=== PATIENT | male | born 1965 | race Two or more races ===

== ENCOUNTER 2017-07-21 22:24 | Emergency (ER) | payer SELFPAY ==
[~2017-07-21] VITALS: Ht 182.9 cm; Wt 90.7 kg
[2017-07-21] MEDS ORDERED: NORVASC2.5 MG ORAL (22:33)
[2017-07-21 23:17] LABS: BASOPHILS % (AUTO) 0.5 % (0.0-2.0); EOSINOPHILS % (AUTO) 0.7 % (0.0-3.0); LYMPHOCYTES % (AUTO) 28.1 % (20.0-45.0); MEAN CORPUSCULAR HEMOGLOBIN 29.5 PG (27.0-31.0); MEAN CORPUSCULAR HGB CONC 31.9 G/DL (32.0-36.0); MEAN CORPUSCULAR VOLUME 92 FL (80-99); MEAN PLATELET VOLUME 7.2 FL (6.5-10.1); MONOCYTES % (AUTO) 6.2 % (1.0-10.0); NEUTROPHILS % (AUTO) 64.5 % (45.0-75.0); PLATELET COUNT 187 K/UL (150-450); RED BLOOD COUNT 6.05 M/UL (4.70-6.10); RED CELL DISTRIBUTION WIDTH 12.9 % (11.6-14.8); WHITE BLOOD COUNT 12.3 K/UL (4.8-10.8)
[2017-07-21 23:41] LABS: ALANINE AMINOTRANSFERASE 15 U/L (12-78); ALBUMIN/GLOBULIN RATIO 1.1 (1.0-2.7); ANION GAP 11 mmol/L (5-15); ASPARTATE AMINO TRANSFERASE 11 U/L (15-37); CALCIUM 9.8 MG/DL (8.5-10.1); CARBON DIOXIDE 25 MMOL/L (21-32); CHLORIDE 105 MMOL/L (98-107); CKMB < 0.5 NG/ML (0.0-3.6); CREATININE 1.1 MG/DL (0.55-1.30); GLOMERULAR FILTRATION RATE > 60 mL/min (>60); POTASSIUM 3.9 MMOL/L (3.5-5.1); SODIUM 141 MMOL/L (136-145); TOTAL PROTEIN 7.9 G/DL (6.4-8.2)
[2017-07-21] MEDS ORDERED: Morphine Sulfate 4mg/ml Inj IVP ONE (23:45)
[2017-07-21 23:53] LABS: PROTHROMBIN TIME 10.7 SEC (9.30-11.50)
[2017-07-22] MEDS ORDERED: Morphine Sulfate 2mg/ml Inj IVP ONE ×2 (00:15)
[2017-07-22] MEDS ORDERED: Methocarbamol 750mg tab ORAL ONE (00:30)
--- NOTE | 2017-07-22 01:51 | Emergency Room Report ---
History of Present Illness General Chief Complaint: Chest Pain Source: EMS Present Illness HPI 51-year-old presenting with back pain for 4 days and chest pain. Patient states pain started gradually. Pain is localized to bilateral upper, also with chest pain, sharp in nature, Movement worsens pain. There are no alleviating factors. Denies any shortness of breath diaphoresis nausea vomiting. Denies fever, chills, cough, abd pain. Denies trauma. Patient has never had a stress test. Patient has never had a cardiac catheterization. Denies smoking, no family history of cardiac disease at a young age. Denies trauma. Denies lower extremity weakness/numbness, no bowel/bladder retention or incontinence, saddle anesthesia. Denies fever, chills, abdominal pain, n/v, dysuria/hematuria. No history of IVDA Allergies: Coded Allergies: No Known Allergies (Unverified , 07/21/17) Patient History Past Medical History: see triage record Past Surgical History: none Pertinent Family History: none Reviewed Nursing Documentation: PMH: Agreed, PSxH: Agreed Review of Systems All Other Systems: negative except mentioned in HPI Physical Exam Vital Signs Date Time Temp Pulse Resp B/P (MAP) Pulse Ox O2 Delivery O2 Flow Rate FiO2 07/21/17 22:28 98.1 90 20 171/72 94 Room Air Sp02 EP Interpretation: reviewed, normal General Appearance: alert, GCS 15, non-toxic, mild distress Head: normocephalic, atraumatic Eyes: bilateral eye normal inspection, bilateral eye PERRL, bilateral eye EOMI ENT: normal ENT inspection, normal pharynx, normal voice, moist mucus membranes Neck: normal inspection, full range of motion, supple Respiratory: normal inspection, lungs clear, normal breath sounds, no respiratory distress, no retraction, no wheezing, speaking full sentences, chest symmetrical Cardiovascular #1: normal inspection, regular rate, rhythm, no edema, normal capillary refill Cardiovascular #2: 2+ radial (R), 2+ radial (L) Gastrointestinal: normal inspection, non tender, soft, non-distended, no guarding Genitourinary: no CVA tenderness Musculoskeletal: normal range of motion, other - b/l thoracic paraspinal tendenress,no middline tenderness Neurologic: normal inspection, alert, oriented x3, responsive, appeals coordinator III-XII nml as tested, motor strength/tone normal, sensory intact, normal gait, speech normal Psychiatric: normal inspection, judgement/insight normal, memory normal Skin: normal inspection, normal color, no rash, warm/dry, well hydrated, normal turgor Medical Decision Making Diagnostic Impression: Primary Impression: Chest pain Additional Impression: Back pain ER Course 51-year-old male with 2 days of back pain, chest pain DDX: ACS vs. CHF vs. pneumonia vs. gastritis/GERD vs. pneumothorax Aortic dissection Plan: IV access, obtain labs including troponin, EKG, CXR CTA TO RULE OUT DISSECTION ER course: Labs: troponin negative Patient was treated with multiple pain medications for his back pain Sitting up comfortably, on the phone, conversing with family Feels better CT negative for dissection ambulatory in the ED more so complaining of back pain worse w movement than cp feels much better w meds Disposition: Patient will be discharged to home. Patient given prescriptions of Motrin Robaxin for back pain Strict precautions discussed with patient on when to emergently return to the ED : this includes worsening/severe chest pain, palpitations, shortness of breath, syncopal episodes, fever or chills, which may indicate severe illness. Patient verbalized understanding. Patient also cautioned if her pain worsens, unable to move legs, inability to urinate please come back to the emergency room Patient instructed to follow up with their PMD within the next 2 days. Patient also instructed to follow up with a can closing machine operator within 2 days for possible outpatient stress test. Patient agrees with plan. Please note that this Emergency Department Report was dictated using [employer] programming director technology software, occasionally this can lead to erroneous entry secondary to interpretation by the dictation equipment. EKG Diagnostic Results EP Interpretation: Yes Rate: normal Rhythm: NSR ST Segments: No acute changes ASA given to patient: Yes Rhythm Strip EP Interpretation: Yes Rate: 80 Rhythm: NSR, no PVCs, no ectopy Chest X-ray CXR: Ordered: Yes 1 view Indication: Chest pain EP interpretation: Yes Interpretation: No consolidation, no effusion, no PTX, no acute cardiopulmonary disease Impression: No acute disease, no widened mediastinum Electronically signed by Kevin Wells MD Laboratory Tests Test 07/21/17 23:00 07/22/17 02:17 White Blood Count 12.3 K/UL (4.8-10.8) H Red Blood Count 6.05 M/UL (4.70-6.10) Hemoglobin 17.8 G/DL (14.2-18.0) Hematocrit 55.8 % (42.0-52.0) H Mean Corpuscular Volume 92 FL (80-99) Mean Corpuscular Hemoglobin 29.5 PG (27.0-31.0) Mean Corpuscular Hemoglobin Concent 31.9 G/DL (32.0-36.0) L Red Cell Distribution Width 12.9 % (11.6-14.8) Platelet Count 187 K/UL (150-450) Mean Platelet Volume 7.2 FL (6.5-10.1) Neutrophils (%) (Auto) 64.5 % (45.0-75.0) Lymphocytes (%) (Auto) 28.1 % (20.0-45.0) Monocytes (%) (Auto) 6.2 % (1.0-10.0) Eosinophils (%) (Auto) 0.7 % (0.0-3.0) Basophils (%) (Auto) 0.5 % (0.0-2.0) Prothrombin Time 10.7 SEC (9.30-11.50) Prothrombin Time INR 1.0 (0.9-1.1) PTT 28 SEC (23-33) Sodium Level 141 MMOL/L (136-145) Potassium Level 3.9 MMOL/L (3.5-5.1) Chloride Level 105 MMOL/L (98-107) Carbon Dioxide Level 25 MMOL/L (21-32) Anion Gap 11 mmol/L (5-15) Blood Urea Nitrogen 20 mg/dL (7-18) H Creatinine 1.1 MG/DL (0.55-1.30) Estimate Glomerular Filtration Rate > 60 mL/min (>60) Glucose Level 163 MG/DL (74-106) H Calcium Level 9.8 MG/DL (8.5-10.1) Total Bilirubin 0.4 MG/DL (0.2-1.0) Aspartate Amino Transferase (AST) 11 U/L (15-37) L Alanine Aminotransferase (ALT) 15 U/L (12-78) Alkaline Phosphatase 87 U/L (46-116) Total Creatine Kinase 54 U/L (26-308) Creatine Kinase MB < 0.5 NG/ML (0.0-3.6) Creatine Kinase MB Relative Index 0.9 Troponin I 0.002 ng/mL (0.000-0.056) 0.003 ng/mL (0.000-0.056) Pro-B-Type Natriuretic Peptide 51 pg/mL (0-125) Total Protein 7.9 G/DL (6.4-8.2) Albumin 4.1 G/DL (3.4-5.0) Globulin 3.8 g/dL Albumin/Globulin Ratio 1.1 (1.0-2.7) CT/MRI/US Diagnostic Results CT/MRI/US Diagnostic Results : Imaging Test Ordered: CTA chest with IV contrast Impression CT CHEST With Contrast: Comparison: Chest x-ray July 21, 2017 Impression: No pulmonary embolism or aortic aneurysm. Lungs are clear Comment: Lower neck soft tissues are normal No mediastinal or hilar lymphadenopathy No aortic aneurysm or dissection No pulmonary embolism Lungs are clear. No infiltrate or pleural effusion. No pneumothorax No acute osseous abnormality Upper abdomen is grossly normal Last Vital Signs Date Time Temp Pulse Resp B/P (MAP) Pulse Ox O2 Delivery O2 Flow Rate FiO2 07/21/17 23:17 90 20 Room Air 07/21/17 22:28 98.1 171/72 94 Disposition: HOME, SELF-CARE Condition: Improved Scripts Methocarbamol* (ROBAXIN-750*) 750 Mg Tablet 750 MG PO QID, #28 TAB 0 Refills Prov: Kevin Wells M.D. 07/22/17 Ibuprofen* (MOTRIN*) 600 Mg Tablet 600 MG ORAL Q8H Y for For Pain, #30 TAB 0 Refills Prov: Kevin Wells M.D. 07/22/17 Referrals: NOT CHOSEN ALFONSO/,REFERRING (PCP) Kevin Wells M.D. Jul 22, 2017 01:51
[2017-07-22] MEDS ORDERED: IBUPROFEN600 MG ORAL (02:14)
[2017-07-22] MEDS ORDERED: ROBAXIN-750750 MG PO (02:14)
[2017-07-22 03:13] VITALS: BP 147/80
--- NOTE | 2017-07-22 09:00 | Diagnostic Imaging Report ---
ndication: PAIN chest pain Technique: IV administration nonionic contrast. Spiral acquisitions obtained from the lung bases to the lung apices. Multiplanar and 3-D reconstructions were generated. Total dose length product 1299 mGycm. CTDIvol(s) 12, 25, 35 mGy. Dose reduction achieved using automated exposure control Comparison: None Findings: Pulmonary arterial opacification is barely adequate. No definite intraluminal filling defects or other findings to suggest acute pulmonary embolus demonstrated. No evidence of thoracic aortic aneurysm or dissection. Upper limits of normal heart size. No evidence of right ventricular dilatation. Normal caliber ulnar arteries. Very faint groundglass opacity is seen throughout both lungs with a slightly geographic distribution, most predominant in the lower lobes. No infiltrates, effusions, nodules, or masses. No pericardial effusion. No mediastinal or hilar mass or adenopathy. No axillary or chest wall mass or adenopathy. The bones are intact. The included upper abdominal viscera are unremarkable. Impression: Negative for evidence of acute pulmonary embolus are there thoracic vascular pathology Minimal groundglass opacity diffusely, especially at the lung bases, suspect on the basis of mild COPD changes. Otherwise clear lungs Otherwise no significant abnormality This agrees with the preliminary interpretation provided overnight by [facility] teleradiology service. The CT scanner at [facility] is accredited by the [employer] and the scans are performed using protocols designed to limit radiation exposure to as low as reasonably achievable to attain images of sufficient resolution adequate for diagnostic evaluation.
--- NOTE | 2017-07-22 11:16 | Diagnostic Imaging Report ---
Indication: PAIN Technique: One view of the chest Comparison: none Findings: Lungs and pleural spaces are clear. Heart size is normal. Impression: No acute process
--- NOTE | 2017-07-24 18:43 | Cardiology Report ---
APPROVED REPORT EKG Measurement Heart [id number] Normal sinus rhythm with sinus arrhythmia Low voltage QRS Borderline ECG
== END 2017-07-22 03:15 | disposition home or self-care (01) ==
LOC: EDBD 22:24 → EMR 22:46
DX: R07.89 Other chest pain (principal); M54.9 Dorsalgia, unspecified
CPT/HCPCS: 36415; 71010; 71275; 80053; 82550; 82553; 83880; 84484; 85025; 85610; 85730; 93005; 96374; 96376; 99284; J2270; Q9967

== ENCOUNTER 2020-10-16 12:02 | Outpatient (CLI) | payer MEDICAID ==
[~2020-10-16] VITALS: Ht 182.9 cm; Wt 109.8 kg
[~2020-10-16 12:02] MED LIST: IBUPROFEN600 MG ORAL; NORVASC2.5 MG ORAL; ROBAXIN-750750 MG PO
[2020-10-16 12:40] VITALS: BP 134/78
--- NOTE | 2020-10-17 20:29 | Consultation ---
DATE OF CONSULTATION: 10/16/2020 CONSULTING PHYSICIAN: Raymond Tang MD CHIEF COMPLAINT: Abdominal pain, need for screening colonoscopy, complaint of constipation. HISTORY OF PRESENT ILLNESS: This is a 54-year-old male complaining of left upper quadrant abdominal pain relatively severe. Apparently, the patient had a CT of the abdomen and pelvis done, which was nondiagnostic. Basically, the impression was multiple nonobstructing left renal stones up to about 8 mm and mild fatty liver. The patient also never had a colonoscopy. He complained of some constipation. PAST MEDICAL HISTORY: 1. Diabetes. 2. CVA. 3. Hypertension. PAST SURGICAL HISTORY: Appendectomy. MEDICATIONS: See medication reconciliation list. FAMILY HISTORY: No family history of GI malignancies. SOCIAL HISTORY: The patient denies any alcohol, but smokes 2 packs per day. No IV drug abuse. ALLERGIES: No known allergies. REVIEW OF SYSTEMS: Positive for abdominal pain, GERD, constipation. PHYSICAL EXAMINATION: VITAL SIGNS: Temperature 97.6, blood pressure 134/78, pulse is 70, respirations 20. HEENT: Normocephalic and atraumatic. Sclerae are anicteric. NECK: Supple. No evidence of obvious lymphadenopathy. CARDIOVASCULAR: Regular rate and rhythm. Plus S1-S2. LUNGS: Clear to auscultation bilaterally. ABDOMEN: Soft, nontender. No rebound. No guarding. No peritoneal sign. EXTREMITIES: No cyanosis, no clubbing, no edema. ASSESSMENT AND PLAN: This is a 54-year-old male with constipation and left upper quadrant abdominal pain with negative CT, in need for a screening colonoscopy. Also has evidence of kidney stone on the CT on the left side. So, pain might be from the kidney stone. The patient needs a Urology referral for that. Meanwhile, we are going to try to schedule the patient for endoscopy for chronic pain and colonoscopy for screening. The patient was also given a prescription for Xifaxan and Trulance for complaint of his constipation and abdominal . Raymond Tang M.D. DR: CLAUDINE JOB#: [id number] CC:
== END 2020-10-16 14:39 | disposition home or self-care (01) ==
LOC: PAN 12:02
DX: R10.9 Unspecified abdominal pain (principal); K59.00 Constipation, unspecified; E11.9 Type 2 diabetes mellitus without complications; Z86.73 Personal history of transient ischemic attack (TIA), and cerebral infarction without residual deficits; Z90.89 Acquired absence of other organs; K21.9 Gastro-esophageal reflux disease without esophagitis
CPT/HCPCS: 99203